=== PATIENT | female | born 1980 | race Caucasian/White ===

== ENCOUNTER 2017-10-20 16:34 | Observation (INO) | payer MEDICAID, OTHER ==
[~2017-10-20] VITALS: Ht 167.6 cm; Wt 48.0 kg
[2017-10-20 17:34] LABS: BASOPHILS # (AUTO) 0.08 x10^3/uL (0-0.1); BASOPHILS % (AUTO) 1 % (0-1); EOSINOPHILS # (AUTO) 0.17 x10^3/uL (0-0.4); EOSINOPHILS % (AUTO) 2 % (1-7); LYMPHOCYTES # (AUTO) 2.98 x10^3/uL (1-3.4); LYMPHOCYTES % (AUTO) 31 % (22-44); MD NO; MEAN CORPUSCULAR HEMOGLOBIN 29.6 pg (27.0-34.8); MEAN CORPUSCULAR HGB CONC 32.9 g/dL (32.4-35.8); MEAN CORPUSCULAR VOLUME 89.8 fL (80-100); MEAN PLATELET VOLUME 9.3 fL (7.4-10.4); MONOCYTES # (AUTO) 0.68 x10^3/uL (0.2-0.8); MONOCYTES % (AUTO) 7 % (2-9); NEUTROPHILS # (AUTO) 5.73 x10^3/uL (1.8-6.8); NEUTROPHILS % (AUTO) 60 % (42-75); PLATELET COUNT 217 x10^3/uL (130-400); RED BLOOD COUNT 5.44 x10^6/uL (3.82-5.3); RED CELL DISTRIBUTION WIDTH 15.8 % (9.6-15.2)
[2017-10-20 17:41] LABS: ALBUMIN 4.1 g/dL (3.4-5.0); ANION GAP 5 mmol/L (5-15); CALCIUM 8.6 mg/dL (8.5-10.1); CHLORIDE 106 mmol/L (98-107); SALICYLATE LEVEL 2.2 mg/dL (2.8-20.0)
[2017-10-20 17:47] LABS: ALANINE AMINOTRANSFERASE 17 U/L (12-78); ALKALINE PHOSPHATASE 104 U/L (45-117); BILIRUBIN,TOTAL 0.4 mg/dL (0.2-1.0); CREATININE 0.81 mg/dL (0.55-1.02); TOTAL PROTEIN 8.4 g/dL (6.4-8.2)
[2017-10-20 17:47] LABS: MICROSCOPIC INDICATED
[2017-10-20 17:48] LABS: ACETAMINOPHEN < 2 mcg/mL (10-30)
[2017-10-20 17:48] LABS: AMPHETAMINE SCREEN, URINE Negative (Negative); BARBITURATE SCREEN, URINE Negative (Negative); BENZODIAZEPINE SCREEN, URINE Negative (Negative); CANNABINOID SCREEN, URINE Negative (Negative); COCAINE SCREEN, URINE Negative (Negative); CULTURE INDICATED? YES; METHADONE SCREEN, URINE Negative (Negative); OPIATE SCREEN, URINE Negative (Negative)
[2017-10-20] MEDS ORDERED: ZIPRASIDONE 20 MG INJ IM ONE ×3 (17:55→18:00)
[2017-10-20] MEDS ORDERED: ONDANSETRON ODT 4 MG PO PRN (20:30)
[2017-10-20] MEDS ORDERED: CEFDINIR 300 MG CAPSULE PO SCH (21:00)
[2017-10-21] MEDS ORDERED: CEFDINIR 300 MG CAPSULE ONE ×3 (00:18→21:31)
[2017-10-21] MEDS ORDERED: PHENAZOPYRIDINE 200 MG TABLET ONE (03:45)
[2017-10-21] MEDS ORDERED: PHENAZOPYRIDINE 200 MG TABLET PO ONE (04:00)
[2017-10-21] MEDS ORDERED: LORazepam 1MG TABLET ONE ×2 (06:12→13:30)
[2017-10-21] MEDS: LORazepam 1MG TABLET PO PRN ×2 (06:20→13:32)
[2017-10-21] MEDS ORDERED: CEFD300C37 PO (07:46)
[2017-10-21] MEDS: CEFDINIR 300 MG CAPSULE PO SCH ×3 (09:00→21:32)
[2017-10-22] MEDS ORDERED: LORazepam 1MG TABLET ONE ×2 (08:07→20:35)
[2017-10-22] MEDS: LORazepam 1MG TABLET PO PRN ×2 (08:12→20:40)
[2017-10-22] MEDS: NICOTINE 14MG/24 HR PATCH.TD24 TD SCH (08:30)
[2017-10-22] MEDS ORDERED: CEFDINIR 300 MG CAPSULE ONE ×2 (08:40→20:35)
[2017-10-22] MEDS ORDERED: NICOTINE 14MG/24 HR PATCH.TD24 ONE (08:40)
[2017-10-22] MEDS: CEFDINIR 300 MG CAPSULE PO SCH ×2 (08:44→20:39)
[2017-10-23] MEDS ORDERED: LORazepam 1MG TABLET ONE ×2 (05:21→23:34)
[2017-10-23] MEDS: LORazepam 1MG TABLET PO PRN ×2 (05:29→23:34)
[2017-10-23] MEDS ORDERED: NICOTINE 14MG/24 HR PATCH.TD24 ONE (09:06)
[2017-10-23] MEDS ORDERED: CEFDINIR 300 MG CAPSULE ONE (09:06)
[2017-10-23] MEDS: NICOTINE 14MG/24 HR PATCH.TD24 TD SCH (10:41)
[2017-10-23] MEDS: CEFDINIR 300 MG CAPSULE PO SCH (10:41)
[2017-10-23] MEDS ORDERED: ACETAMINOPHEN 325 MG TABLET ONE ×2 (19:36→19:38)
[2017-10-23] MEDS: ACETAMINOPHEN 325 MG TABLET PO PRN (19:37)
[2017-10-24] MEDS ORDERED: NICOTINE 14MG/24 HR PATCH.TD24 ONE (08:29)
[2017-10-24] MEDS: NICOTINE 14MG/24 HR PATCH.TD24 TD SCH (09:35)
[2017-10-24] MEDS ORDERED: LORazepam 1MG TABLET ONE (14:32)
[2017-10-24] MEDS ORDERED: ACETAMINOPHEN 325 MG TABLET ONE (14:34)
[2017-10-24] MEDS: LORazepam 1MG TABLET PO PRN (14:37)
[2017-10-24] MEDS: ACETAMINOPHEN 325 MG TABLET PO PRN (14:37)
[2017-10-25] MEDS ORDERED: ACETAMINOPHEN 325 MG TABLET ONE ×2 (00:04→14:21)
[2017-10-25] MEDS: ACETAMINOPHEN 325 MG TABLET PO PRN (00:13)
[2017-10-25] MEDS ORDERED: LORazepam 1MG TABLET ONE ×2 (03:08→10:04)
[2017-10-25] MEDS: LORazepam 1MG TABLET PO PRN ×2 (03:09→10:08)
[2017-10-25] MEDS ORDERED: NICOTINE 14MG/24 HR PATCH.TD24 ONE (10:26)
[2017-10-25] MEDS: NICOTINE 14MG/24 HR PATCH.TD24 TD SCH (14:11)
[2017-10-26] MEDS ORDERED: NICOTINE 14MG/24 HR PATCH.TD24 ONE (00:55)
[2017-10-26] MEDS: NICOTINE 14MG/24 HR PATCH.TD24 TD SCH (01:05)
[2017-10-26] MEDS ORDERED: LORazepam 1MG TABLET ONE ×3 (01:09→18:35)
[2017-10-26] MEDS: LORazepam 1MG TABLET PO PRN ×3 (01:13→20:36)
[2017-10-26] MEDS ORDERED: ACETAMINOPHEN 325 MG TABLET ONE ×2 (12:50→18:35)
[2017-10-26] MEDS: ACETAMINOPHEN 325 MG TABLET PO PRN ×2 (13:02→20:36)
[2017-10-27] MEDS ORDERED: NICOTINE 14MG/24 HR PATCH.TD24 ONE (15:00)
[2017-10-27] MEDS: NICOTINE 14MG/24 HR PATCH.TD24 TD SCH (15:09)
[2017-10-27] MEDS: ACETAMINOPHEN 325 MG TABLET PO PRN (19:23)
[2017-10-27] MEDS ORDERED: ACETAMINOPHEN 325 MG TABLET ONE (19:24)
[2017-10-27] MEDS: LORazepam 1MG TABLET PO PRN (21:53)
[2017-10-27] MEDS ORDERED: LORazepam 1MG TABLET ONE (21:55)
[2017-10-28 11:01] VITALS: BP 112/68
== END 2017-10-28 18:25 | disposition home or self-care (01) ==
LOC: ED 18:15 → EDIP 20:05 → EDBD 20:05
PROVIDERS: ADMIT Hospitalist; ATTEND Hospitalist
DX: F20.1 Disorganized schizophrenia (principal); B96.20 Unspecified Escherichia coli [E. coli] as the cause of diseases classified elsewhere; N30.90 Cystitis, unspecified without hematuria
CPT/HCPCS: 36415; 80053; 80307; 80329; 81001; 84703; 85025; 87077; 87086; 87186; 96372; 99285; G0378; J3486; Q0177; G0480